=== PATIENT | male | born 1965 | race Caucasian/White ===

== ENCOUNTER 2016-05-10 11:19 | Emergency (ER) | payer BC ==
[2016-05-10] MEDS ORDERED: FAMOTIDINE 20 MG/2 ML SDV IVP ONE (11:30)
[2016-05-10] MEDS ORDERED: methylPREDNISolone SOD SUCC 125 MG/2 ML VIAL IVP ONE (11:30)
[2016-05-10] MEDS ORDERED: NS 1,000 ML IV ONE (11:33)
--- NOTE | 2016-05-10 11:49 | UCPHY ---
H & P Time Seen by Provider: 05/10/16 11:29 Patient Type: Established HPI/ROS: HPI Allergic reaction. 50-year-old male by private vehicle with family. This patient reports that last night he took homeopathic sleep medication as well as his blood pressure medication which is lisinopril. He reports that about 3:00 a.m. he woke up with sensation of his upper lip swelling. He reports that he has had this happen to him in the past. He reports that usually goes away on its own. He reports that the lip has been swelling more than usual. He has not had any difficulty breathing. No sensation of his throat swelling or difficulty swallowing. No voice changes. ROS: Constitutional: No fever, no chills. No weakness. Eyes: No discharge. No changes in vision. ENT: No sore throat. No nasal congestion or rhinorrhea. As above. Respiratory: No cough. No shortness of breath. Cardiac: No chest pain, no palpitations. Gastrointestinal: No abdominal pain, no vomiting, no diarrhea. Genitourinary: No hematuria. No dysuria or increased frequency with urination. Musculoskeletal: No back pain. No neck pain. No myalgias or arthralgias. Skin: As above. Neurological: No headache. No focal weakness or altered sensation. Past medical history: Hypertension. Social history: Here with family. Physical Exam: General Appearance: Alert, no distress. This patient is responding to questions appropriately and in full sentences. This patient appears well- hydrated and well-nourished. No stridor. No voice changes. Eyes: Pupils equal and round no pallor or injection. No lid edema, erythema or injection. ENT, Mouth: Mucous membranes are moist. He has some uvular edema. No asymmetry suggestive of abscess. No erythema or exudates. Angioedema involving the upper lip and greater on the right side of the upper lip. There is no stridor on auscultation of his neck. Respiratory: There are no retractions, lungs are clear to auscultation with good air movement bilaterally. Cardiovascular: Regular rate and rhythm. No murmur. Neurological: Motor sensory function is grossly intact. Cranial nerves are normal. Gait is normal. Skin: Warm and dry, no rashes. Musculoskeletal: Neck is supple and nontender. Extremities are symmetrical. All joints range without pain or impingement. Psychiatric: No agitation. No depression. Database: EKG: Imaging: Procedures: Emergency department course: IV placed. He was placed on a painting technician. 0.5 mL of 101 1000 IM epinephrine to the bedside. Patient initially given 125 mg of IV Solu-Medrol, 40 mg of IV Pepcid and 25 mg of IV Benadryl. He has taken several doses of 50 mg of oral Benadryl since 3:00 a.m. prior to arrival. 12:15 p.m., patient re-evaluated. Resting comfortably at this time. Vital signs reviewed and are unremarkable. Angioedema has significantly decreased on the right upper lip and right side of his face. His uvular edema has decreased as well. Patient reporting that he feels better. 1:10 p.m., patient re-evaluated. Doing much better. Angioedema upper lip has significantly reduced. Uvular angioedema again improved. Patient feels comfortable going home and is requesting discharge. I feel he is safe for discharge at this time. He will be prescribed prednisone and antihistamines. I will also prescribe him an EpiPen to have at home. Return to emergency department precautions were thoroughly reviewed with him. Follow-up was discussed. He understands he is not to use his THERESA-inhibitor and he will seek an alternative antihypertensive through his primary care physician. Patient was discharged in good condition. Differential Diagnosis: The differential diagnosis on this patient includes but is not limited to THERESA- inhibitor induced angioedema, other allergic reaction. Anaphylaxis, cellulitis unlikely. This represents a partial list of diagnoses considered. These considerations are based on history, physical exam, past history, reassessment and diagnostic testing. Smoking Status: Current every day smoker Constitutional: Initial Vital Signs Temperature (C) 36.9 C 05/10/16 11:25 Heart Rate 86 05/10/16 11:25 Respiratory Rate 16 05/10/16 11:25 Blood Pressure 149/109 H 05/10/16 11:25 O2 Sat (%) 96 05/10/16 11:25 O2 Delivery Mode Room Air Allergies/Adverse Reactions: No Known Allergies Allergy (Verified 05/10/16 11:58) Home Medications: Medication Instructions Recorded Aspirin 81mg (OTC) 12/25/13 LISINOPRIL/HYDROCHLOROTHIAZIDE 12/25/13 predniSONE 20 mg PO DAILY #5 tab 12/25/13 EPINEPHrine KIT [Epipen Kit] 0.3 mg IM ONCE #1 inj 05/10/16 Famotidine [Pepcid] 40 mg PO BID #14 tab 05/10/16 diphenhydrAMINE [Benadryl 50 MG 50 mg PO Q6 #7 cap 05/10/16 (*)] predniSONE [prednisone 20mg (RX)] 60 mg PO DAILY #10 tab 05/10/16 Medical Decision Making - Data Points Medications Given: Discontinued Medications Diphenhydramine HCl (Benadryl Injection) 25 mg IVP EDNOW ONE Stop: 05/10/16 11:31 Last Admin: 05/10/16 11:35 Dose: 25 mg Famotidine (Pepcid) 40 mg IVP EDNOW ONE Stop: 05/10/16 11:31 Last Admin: 05/10/16 11:40 Dose: 40 mg Sodium Chloride (Ns) 1,000 mls @ 0 mls/hr IV ONCE ONE PRN Reason: Wide Open Stop: 05/10/16 11:34 Last Admin: 05/10/16 11:33 Dose: 1,000 mls Methylprednisolone Sodium Succinate (Solu-Medrol) 125 mg IVP EDNOW ONE Stop: 05/10/16 11:31 Last Admin: 05/10/16 11:37 Dose: 125 mg Departure - Departure Disposition: Home, Routine, Self-Care Clinical Impression: Angioedema Condition: Good Instructions: Angioedema (ED), Epinephrine (By injection) Additional Instructions: Read and follow provided instructions. Do not take your lisinopril for blood pressure medication any longer. Follow-up with your primary care physician in 1-2 days for re-evaluation and placement on a new antihypertensive medication. Tell your primary care physician that we were concerned about THERESA-inhibitor induced angioedema. Take medications as prescribed. As discussed, take 1 time 60 mg dose of prednisone this afternoon at 3:00 p.m.. Use EpiPen only as needed in as discussed. Return to the emergency department for sensation of swelling in your throat, worsening facial swelling, any wheezing or difficulty breathing or other serious concerns. Referrals: [place],. [Primary Care Provider] - As per Instructions Prescriptions: diphenhydrAMINE [Benadryl 50 MG (*)] 50 mg PO Q6 #7 cap EPINEPHrine KIT [Epipen Kit] 0.3 mg IM ONCE #1 inj Famotidine [Pepcid] 40 mg PO BID #14 tab predniSONE [prednisone 20mg (RX)] 60 mg PO DAILY #10 tab - PQRS PQRS Measurement: 134: Depression screening and followup, PRIME MD-PHQ2 (12 years and older) Over the last 2 weeks, how often have you been bothered by any of the following problems? 1. Feeling down, depressed, or hopeless? 2. Little interest or pleasure in doing things? Answered no to both questions. 130: Documentation of medications. Reviewed all patient medications, doses, route and frequency. 226: Do you smoke? No. 47: 65 and older: Advanced care planning. Patient designates surrogate decision maker as spouse. 51: 18 years old and older with diagnosis of COPD, spirometry performance. NA 52: 18 years old and older with COPD and symptoms of COPD or FEV1<60% predicted prescribed a B Agonist. NA
[2016-05-10 12:20] VITALS: RESP 16; TEMP 98.4
[2016-05-10] MEDS ORDERED: predniSONE 20 MG TAB PO ONE (13:18)
[2016-05-10 18:31] VITALS: BP 121/90; PULSE 65; O2SAT 95
== END 2016-05-10 13:40 | disposition home or self-care (01) ==
LOC: CED 11:19
DX: T78.3XXA Angioneurotic edema, initial encounter (principal); I10 Essential (primary) hypertension
CPT/HCPCS: 96361-PO; 96374-PO; 96375-PO; 99215-PO; G0463-PO